=== PATIENT | female | born 1980 ===

== ENCOUNTER 2024-11-30 15:10 | Outpatient (AMB) | payer OTHER, SELFPAY ==
--- NOTE | 2024-11-30 15:38 | GYNCLNT_ITS ---
Vital Signs 11/30/24 15:44 Height 1.68 m Height Method Stated Weight 87.997 kg Weight Measurement Method Standing Scale BMI 31.3 BP 115/73 Blood Pressure Source Automatic Cuff Blood Pressure Location Left Upper Arm Position Sitting Respiration 12 Pulse 67 Pulse Source Monitor Temp 97.5 F Temp Source Oral Pulse Oximetry (%) 100 Oxygen Delivery Method Room Air Allergies/Home Meds Allergies & Medications Allergies No Known Allergies Allergy (Verified 11/30/24 15:46) Medication Reconciliation No Known Home Medications 11/30/24 [History Confirmed 11/30/24] Intake Visit Data Collection New Patient or Established: Established Patient (seen at [facility] within 3 years) Reason for Visit:: ANNUAL WELLNESS Seen by Clinical Staff ONLY (RN/MA): No Mechanical Tech Required: No Do You Feel Safe at Home: Yes Authorities Contacted: N/A PCP or OBGYN visit in last 3 months: No Hx Now: No Are you currently on any form of Control: No Last menstrual period: 11/07/24 Pain Present Currently: No Pain Scale Used: Whelan-Delgado/Numerical Pain scale:: 0 Smoking Status Smoking Status: Never smoker 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 1. Little interest or pleasure in doing things: not at all 2. Feeling down, depressed, or hopeless: not at all Total score: 0 PHQ-9 3. Trouble falling or staying asleep, or sleeping too much: Not at all 4. Feeling tired or having little energy: Not at all 5. Poor appetite or overeating: Not at all 6. Feeling bad about yourself - or that you are a failure or have let yourself or your family down: Not at all 7. Trouble concentrating on things, such as reading the newspaper or watching television: Not at all 8. Moving or speaking so slowly that other people could have noticed? - Or the opposite - being so fidgety or restless that you have been moving around a lot more than usual: not at all 9. Thoughts that you would be better off or of hurting yourself in some way: Not at all Total score: 0 Source: Developed by Drs. Nii Watson, Guillermina Garcia, Lobito Tse and colleagues, with an educational arelis from [employer]. 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 Tobacco History Smoking Status: Never smoker Second Hand Smoke Exposure: No Alcohol History Alcohol Intake: Never Domestic Abuse History Do You Feel Safe at Home: Yes Past Medical History Past Medical History Have you ever been diagnosed with any of the following: Stomache/Intestinal Problems Gall Bladder Disease: No Obesity: No Reproductive Problems Breast Cancer: No Endometriosis: No Fibroids: No Genital Herpes: No Gonorrhea: No Pelvic Inflammatory Disease: No Polycystic Ovarian Syndrome: No Previous Pregnancies: Yes ( x 2 in the past.) Musculoskeletal Problems Arthritis: No Rheumatoid Arthritis: No Head,Eye,Nose,Throat Problems Cataracts: No Endocrine Problems Diabetes Mellitus Type 2: No Cleveland's Syndrome: No Hyperthyroidism: No Hypothyroidism: No Blood Problems Anemia: Yes (History of blood transfusion in the past during tx for choriocarcinoma.) Psychologic Problems Depression: No Anxiety: No Depression: No Other Problems Hospitalization: Yes (For x 2 for childbirth, for chemotherapy for chorio carcinoma) Autoimmune Disease: No Chemotherapy: Yes (For choriocarcinoma 2007) Surgical History Appendectomy: No Cancer Surgery: Yes (D&C for choriocarcinoma followed by chemotherapy) Additional Surgical History: Cryotherapy, D&C, x 2 History of Present Illness HPI Narrative The patient is a 43-year-old -0-0-2. Her son Kanu was born in 2016 by . The patient then developed a choriocarcinoma approximately 8 weeks . She presented to [facility] and Dr Hui took care of her. He performed a D&C for a hemorrhage. Pathology revealed choriocarcinoma. The patient was managed by a gynecological oncologist. Patient then underwent chemotherapy. She then had a successful in 2020 of another son named Anton. In between she adopted a son named Michael who is now 14 years old. The patient used to see me in [place]. She has none of her records today. She just presents for an annual exam. They are using the rhythm method for contraception. Patient does not want any form of control today. She has no gynecological complaints specifically no abnormal bleeding ,no heavy bleeding with her cycles, no breast pain ,no breast lumps and no urinary complaints. She does have a history of abnormal Paps and has had cryotherapy performed in the past. Again I have no records of her abnormal Paps. She said that she has had some spotting after intercourse 3 times. Her last Pap was in 2022. Family history reveals diabetes and hypertension in her parents her dad has kidney disease her mother had breast cancer in her early 60s and patient was tested for BRCA1 BRCA2 and this is negative. Again I have no records. Review of Systems Review of Systems Narrative Review of Systems: No gynecological complaints except spotting after intercourse x 3. Using natural family planning for contraception. Does not desire contraception. Exam General General Appearance: alert, in no apparent distress, comfortable, cooperative, healthy appearing and well groomed Exp Chest Breast: bilateral: other (Bilateral breast exam performed and normal.) External exam: Present normal external exam Speculum exam: Present normal speculum exam Bimanual exam: Present normal bimanual exam Assessment & Plan Diagnosis / Problem List (1) Women's annual routine gynecological examination: Status: Acute Assessment and Plan: Pap with high risk HPV use performed breast exam done encouraged mammogram was ordered. I encouraged patient to release her records from the old office to me. She will follow-up yearly or as needed. Office Procedures OB Clinic LOC & Office Proc's Nursing/Assessment Patient Status: Established Patient OB Clinic Nursing Assessment: Medication Reconciliation, Update PMH in EMR and Vital Signs OB Clinic Coordination of Care: Complex Care and Chronic Disease 1-5, Consent,records obtained, informed consent, Education Simp Pt/Fam, Lab and Imaging orders and Staff clarify orders Miscellaneous Interventions: Breast Exam and Pelvic/Pap Smear Set up Established Patient Charge Established Patient Point Assignment: 150 Established Patient Point Charge: EP Level 4 (120-155) In Clinic Procedures Pap Smear: Yes 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 Papsmear completed: yes
[2024-11-30 15:44] VITALS: BP 115/73; PULSE 67; RESP 12; TEMP 36.4; O2SAT 100; BMI 31.3
== END 2024-11-30 16:20 | disposition home or self-care (01) ==
LOC: HODSOBC 15:10
PROVIDERS: PCP Family Medicine; Referring Provider Family Medicine; Supervising Provider Obstetrics & Gynecology; Visit Provider Obstetrics & Gynecology
DX: Z01.419 Encounter for gynecological examination (general) (routine) without abnormal findings (principal); Z11.51 Encounter for screening for human papillomavirus (HPV); Z92.21 Personal history of antineoplastic chemotherapy; Z85.44 Personal history of malignant neoplasm of other female genital organs
CPT/HCPCS: 99214; Q0091; G0463

== ENCOUNTER → 2024-12-07 | Outpatient (CLI) | payer OTHER, SELFPAY ==
--- NOTE | 2024-12-07 10:00 | XR_ITS ---
Examination: Pelvic ultrasound, transabdominal, complete Technique: Transabdominal ultrasound of the pelvis performed using grayscale imaging Date and time of exam: December 07, 2024 1042 hours INDICATIONS: Vaginal bleeding beginning one month ago FINDINGS: Uterus 12.6 cm endometrial stripe 1.1 cm Free fluid in the endometrium Posterior fundal mass 17 x 17 x 21 mm Right ovary 2.5 cm arterial flow small follicles Left ovary 3.3 cm arterial flow small follicles, the largest 14 mm IMPRESSION: Posterior uterine fundal mass 17 x 17 x 21 mm, consider 6 month follow-up transvaginal pelvic sonography
== END | disposition home or self-care (01) ==
PROVIDERS: PCP Obstetrics & Gynecology; Referring Provider Obstetrics & Gynecology; Visit Provider Obstetrics & Gynecology
DX: N85.8 Other specified noninflammatory disorders of uterus (principal)
CPT/HCPCS: 76856

== ENCOUNTER 2025-04-02 10:37 | Outpatient (AMB) | payer OTHER, SELFPAY ==
[2025-04-02 10:45] VITALS: BP 160/96; PULSE 74; RESP 17; TEMP 36.8; O2SAT 98; BMI 31.9
--- NOTE | 2025-04-02 10:45 | GYNCLNT_ITS ---
Vital Signs 04/02/25 10:45 Height 1.68 m Height Method Measured Weight 90.265 kg Weight Measurement Method Standing Scale BMI 31.9 BP 160/96 H Blood Pressure Source Automatic Cuff Blood Pressure Location Right Upper Arm Position Sitting Respiration 17 Pulse 74 Pulse Source Monitor Temp 98.3 F Temp Source Temporal Artery Scan Pulse Oximetry (%) 98 Oxygen Delivery Method Room Air Allergies/Home Meds Allergies & Medications Allergies No Known Allergies Allergy (Verified 04/02/25 10:46) Medication Reconciliation ferrous sulfate 15 mg iron (75 mg)/mL oral drops 0.83 ml PO QDAY 04/02/25 [History Confirmed 04/02/25] Intake Visit Data Collection New Patient or Established: Established Patient (seen at [facility] within 3 years) Reason for Visit:: ULTRASOUND RESULT Consent obtained for Telemed Visit: No Seen by Clinical Staff ONLY (RN/MA): No Mortgage Loan Funder Required: No Do You Feel Safe at Home: Yes Authorities Contacted: N/A PCP or OBGYN visit in last 3 months: Yes Date of Last PCP or OBGYN visit: 11/30/24 Hx Now: No Are you currently on any form of Control: No Last menstrual period: 03/29/25 Pain Present Currently: No Pain Scale Used: Whelan-Delgado/Numerical Pain scale:: 0 Smoking Status Smoking Status: Never smoker Managed Care Coordinator history Managed Care Coordinator History Menstrual regularity: irregular Flow: heavy Monthly: Yes How many days does period last: 5 Age at menarche: 13 Menopausal: No Currently sexually active: Yes 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 1. Little interest or pleasure in doing things: not at all PHQ-9 8. Moving or speaking so slowly that other people could have noticed? - Or the opposite - being so fidgety or restless that you have been moving around a lot more than usual: not at all Source: Developed by Drs. Nii Watson, Guillermina Garcia, Lobito Tse and colleagues, with an educational arelis from [employer]. 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 Tobacco History Smoking Status: Never smoker Second Hand Smoke Exposure: No Alcohol History Alcohol Intake: Never Domestic Abuse History Do You Feel Safe at Home: Yes History of Present Illness HPI Narrative The patient is a 44-year-old -0-0-2 history of x 2 in the past. She is using rhythm method for contraception. She presents reporting heavy cycles. She states she was feeling really tired and went to her primary care, Dr. Vazquez in [place], and had lab work performed. She states her hemoglobin was 8. She is on iron. We did discuss different options for cycle control today. She also had an ultrasound revealing the uterus to be 12.6 cm with a stripe of 1.1 cm she had 1 fibroid present that was 1.7 x 1.7 x 2.1 cm this was actually performed in November. We discussed an IUD which patient declines we di scussed control pills or the NuvaRing which patient might except. We did discuss NovaSure endometrial ablation patient declined surgery unless absolutely necessary. Her mother did have breast cancer but the patient herself is been checked for BRCA1 BRCA2 and this is negative. Of note she herself had choriocarcinoma after the delivery of her first son was treated with chemo and radiation and a D&C and then she went on to have another successful with her second son. She has a total of 3 sons her oldest is adopted his name is Michael he is 14, her son Kanu was born by in 2017 he is about 8 and the baby Anton is 5 years old. Patient is amendable to repeating an ultrasound and more lab work today. Review of Systems Review of Systems Narrative Review of Systems: Patient reports heavy cycles and fatigue Exam Narrative Physical exam: A little pale The remainder of physical exam deferred at this time this is a counseling appointment. General Limitations: no limitations General Appearance: alert, in no apparent distress, comfortable, cooperative, healthy appearing and well groomed Office Procedures OB Clinic LOC & Office Proc's Nursing/Assessment Patient Status: Established Patient OB Clinic Nursing Assessment: Medication Reconciliation, Update PMH in EMR and Vital Signs OB Clinic Coordination of Care: Complex Care and Chronic Disease 1-5, Consent,records obtained, informed consent, Education Simp Pt/Fam and Results/Orders obtained Established Patient Charge Established Patient Point Assignment: 80 Established Patient Point Charge: EP Level 3 (80-115) Assessment & Plan Diagnosis / Problem List (1) Abnormal uterine bleeding (AUB): Status: Acute Plan: Patient continues to pass clots and have heavy bleeding every month. Offered Mirena IUD control pills and NuvaRing or ablation. Patient opts for NuvaRing. Will check stat ultrasound and lab work as patient was already anemic with a hemoglobin of 8 the beginning of summer. She has been taking iron with her primary care. Her ultrasound in November here at [facility] revealed 1 small fibroid 1.1 x 2 cm. Additional Plan Follow Up: 4 Weeks
== END 2025-04-02 11:27 | disposition home or self-care (01) ==
LOC: HODSOBC 10:37
PROVIDERS: PCP Obstetrics & Gynecology; Referring Provider Obstetrics & Gynecology; Supervising Provider Obstetrics & Gynecology; Visit Provider Obstetrics & Gynecology
DX: N93.9 Abnormal uterine and vaginal bleeding, unspecified (principal); D64.9 Anemia, unspecified
CPT/HCPCS: 99213; G0463

== ENCOUNTER → 2025-04-02 | Outpatient (CLI) | payer OTHER, SELFPAY ==
--- NOTE | 2025-04-02 | XR_ITS ---
Examination: Pelvic ultrasound, transabdominal, complete Technique: Transabdominal ultrasound of the pelvis performed using grayscale imaging Date and time of exam: April 02, 2025 1248 hours INDICATIONS: Irregular heavy menses beginning 6 months ago FINDINGS: Uterus 11.3 cm posterior uterine fundal mass 18 x 16 x 20 mm Minimal fluid in the endometrium, endometrial stripe 0.4 cm Right ovary 2.9 x 3.1 cm arterial flow Left ovary 2.3 x 2.1 cm arterial flow IMPRESSION: Intrauterine fundal area of fibroid degeneration 18 x 16 x 20 mm Negative for ovarian mass
[2025-04-02 14:53] LABS: Basophils # (Auto) 0.1 Thou/mm3 (0.0-0.2); Basophils % (Auto) 2 % (0-2.5); Eosinophils # (Auto) 0.5 Thou/mm3 (0.0-0.5); Eosinophils % (Auto) 8 % (0-10); Hematocrit 32.4 % (36.0-46.0); Hemoglobin 9.3 g/dL (12.0-16.0); Immature Granulocytes Auto 0.01 Thou/mm3 (0.00-0.00); Lymphocytes # (Auto) 2.3 Thou/mm3 (1.0-4.8); Lymphocytes % (Auto) 35 % (10-50); Mean Corpuscular HGB Conc 28.7 g/dl (31.0-37.0); Mean Corpuscular Hemoglobin 20.5 pg (25.0-35.0); Mean Corpuscular Volume 71 fL (80-100); Monocytes # (Auto) 0.5 Thou/mm3 (0.0-0.8); Monocytes % (Auto) 7 % (0-12); Neutrophils # (Auto) 3.1 Thou/mm3 (1.8-7.7); Neutrophils % (Auto) 48 % (37-80); Nucleated Red Blood Cell # 0.00 Thou/mm3 (0.00-0.00); Nucleated Red Blood Cell % 0 /100 WBC (0); Platelet Count 346 Thou/mm3 (140-440); RDW Standard Deviation 48.1 fL (36.4-46.3); Red Blood Count 4.54 Miln/mm3 (4.00-5.20); White Blood Count 6.5 Thou/mm3 (3.6-11.0)
[2025-04-02 15:04] LABS: Glucose Estimated Average 111 mg/dL (80-131); Hemoglobin A1C 5.5 % Hgb (4.8-6.0)
[2025-04-02 15:15] LABS: Iron 25 mcg/dL (50-170)
[2025-04-02 15:17] LABS: Free T4 (Free Thyroxine) 1.13 ng/dL (0.89-1.76); Thyroid Stimulating Hormone 1.20 uIU/mL (0.55-4.78)
[2025-04-02 15:20] LABS: Follicle Stimulating Hormone 7.07 mIU/mL (See Note); Vitamin B12 659 pg/mL (211-911)
[2025-04-07 06:33] LABS: Luteinizing Hormone* 2.9 mIU/mL
== END | disposition home or self-care (01) ==
LOC: CDIM 11:59 → COPL 13:11
PROVIDERS: PCP Family Medicine; Referring Provider Obstetrics & Gynecology; Visit Provider Obstetrics & Gynecology
DX: D25.9 Leiomyoma of uterus, unspecified (principal); N93.9 Abnormal uterine and vaginal bleeding, unspecified; N96 Recurrent pregnancy loss
CPT/HCPCS: 36415; 76856; 82607; 83001; 83002; 83036; 83540; 84439; 84443; 85025